=== PATIENT | female | born 1940 | race Caucasian/White ===

== ENCOUNTER 2016-09-26 14:33 | Day surgery (SDC) | payer OTHER ==
[~2016-09-26] VITALS: Ht 160 cm; Wt 69.4 kg
[2016-09-26] MEDS ORDERED: ASPIR 8181 M1 PO (14:52)
[2016-09-26] MEDS ORDERED: NEXIUM20 MG PO (14:52)
[2016-09-26] MEDS ORDERED: LEXAPRO10 MG PO (14:52)
[2016-09-26] MEDS ORDERED: LOSARTAN POTAS100 MG PO (14:53)
[2016-09-26] MEDS ORDERED: CRESTOR5 MG PO (14:53)
[2016-09-26] MEDS ORDERED: SYNTHROID100 MCG PO (14:55)
[2016-09-26] MEDS ORDERED: TOPROL XL25 MG PO (14:56)
[2016-09-26] MEDS ORDERED: HYDROCHLOROTH12.5 M3 PO (14:57)
[2016-09-26] MEDS ORDERED: SINGULAIR10 MG PO (14:58)
[2016-09-26] MEDS ORDERED: VITAMIN D32000 UNI1 PO (14:58)
[2016-09-26] MEDS ORDERED: FISH OIL 1,2001 EAC4 PO (14:59)
[2016-09-26] MEDS ORDERED: VITAMIN B122500 MCG PO (14:59)
[2016-09-26] MEDS ORDERED: ONE DAILY WOME1 EACH PO (15:00)
[2016-09-26] MEDS ORDERED: HYDROCODON-ACE1 EA11 PO (15:01)
[2016-09-26] MEDS ORDERED: CIPROFLOXACIN500 M1 PO (15:01)
[2016-09-26 15:23] LABS: HEMATOCRIT 38.7 % (36.0-46.0); MCH 30.1 PG (29.0-34.0); MCHC 33.9 G/DL (30.0-36.0); MEAN PLAT.VOLUME 9.7 uM^3 (9.5-12.4); PLATELET COUNT 229 K/uL (156-360); RBC DIS.WIDTH-CV 14.2 % (11.8-14.6); RBC DIS.WIDTH-SD 46.5 % (39-53); RED BLOOD COUNT 4.35 M/uL (3.80-5.20); WHITE BLOOD COUNT 7.5 K/uL (4.1-10.2)
[2016-09-26 15:40] LABS: ANION GAP 7 MEQ/L (2-14); CHLORIDE 97 MEQ/L (99-109); POTASSIUM 3.6 MEQ/L (3.7-5.4); PTT 27.1 (25-32); SAMPLE HEMOLYSIS CHECK 0; SAMPLE ICTERIC CHECK 0; SAMPLE LIPEMIA CHECK 0; SODIUM 135 MEQ/L (136-147)
[2016-09-26 15:45] LABS: GFR ESTIMATE (CALCULATED) > 59 mL/min/; GLUCOSE 99 mg/dL (70-99); UREA NITROGEN (BUN) 14 mg/dL (9-23)
[2016-09-26 16:30] LABS: BASE EXCESS 4.9 mEq/L (-3 to +3); BICARBONATE 30.4 mEq/L (22-26); CARBOXY HGB 1.7 % (0-5); METHEMOGLOBIN 1.5 % (0-1.5); PCO2 48 mm Hg (35-45); pH 7.41 (7.35-7.45)
[2016-09-26 16:31] LABS: PO2 38 mm Hg (80-100); SITE PA
[2016-09-26 16:34] LABS: BASE EXCESS 1.9 mEq/L (-3 to +3); BICARBONATE 26.6 mEq/L (22-26); METHEMOGLOBIN 1.4 % (0-1.5); PCO2 41 mm Hg (35-45); PO2 85 mm Hg (80-100); SITE AO; pH 7.42 (7.35-7.45)
== END 2016-09-26 20:30 | disposition home or self-care (01) ==
LOC: CATH 14:33
PROVIDERS: Internal Medicine Cardiovascular Disease
DX: R06.09 Other forms of dyspnea (principal); R94.31 Abnormal electrocardiogram [ECG] [EKG]; I27.2 Other secondary pulmonary hypertension; I10 Essential (primary) hypertension; E78.5 Hyperlipidemia, unspecified; I51.89 Other ill-defined heart diseases; Z88.0 Allergy status to penicillin; Z88.2 Allergy status to sulfonamides
CPT/HCPCS: 36600; 80048; 82803; 85027; 85610; 85730; 93005; C1760; C1769; C1887; C1894; J1644; J2250; J3010; J7050

== ENCOUNTER 2017-06-04 08:47 | Emergency (ER) | payer OTHER ==
[~2017-06-04] VITALS: Ht 160 cm; Wt 66.0 kg
[~2017-06-04 08:47] MED LIST: ASPIR 8181 M1 PO; CIPROFLOXACIN500 M1 PO; CRESTOR5 MG PO; FISH OIL 1,2001 EAC4 PO; HYDROCHLOROTH12.5 M3 PO; HYDROCODON-ACE1 EA11 PO; LEXAPRO10 MG PO; LOSARTAN POTAS100 MG PO; NEXIUM20 MG PO; ONE DAILY WOME1 EACH PO; SINGULAIR10 MG PO; SYNTHROID100 MCG PO; TOPROL XL25 MG PO; VITAMIN B122500 MCG PO; VITAMIN D32000 UNI1 PO
[2017-06-04 09:57] LABS: EOSINOPHIL (%) 0.7 % (0-5); EOSINOPHIL COUNT 0.1 K/uL (0-0.3); HEMATOCRIT 37.6 % (36.0-46.0); IMMATURE GRANULOCYTE (%) 0.4 % (0.0-0.7); INSTRUMENT ABS NEUTROPHIL CT 8.2 K/uL; LYMPHOCYTE COUNT 1.8 K/uL (1.0-2.8); MCH 26.7 PG (29.0-34.0); MCHC 32.4 G/DL (30.0-36.0); MCV 82.3 FL (83-99); MONOCYTE (%) 5.7 % (3-12); MONOCYTE COUNT 0.6 K/uL (0-0.8); NEUTROPHIL (%) 76.1 % (45-76); NEUTROPHIL COUNT 8.2 K/uL (1.8-6.4); PLATELET COUNT 346 K/uL (156-360); RBC DIS.WIDTH-CV 14.5 % (11.8-14.6); RBC DIS.WIDTH-SD 43.3 % (39-53); RED BLOOD COUNT 4.57 M/uL (3.80-5.20); WHITE BLOOD COUNT 10.8 K/uL (4.1-10.2)
[2017-06-04 10:19] LABS: ANION GAP 12 MEQ/L (2-14); CHLORIDE 101 MEQ/L (99-109); POTASSIUM 3.4 MEQ/L (3.7-5.4); SAMPLE HEMOLYSIS CHECK 0; SAMPLE ICTERIC CHECK 0; SAMPLE LIPEMIA CHECK 0; SODIUM 137 MEQ/L (136-147); TOTAL BILIRUBIN 0.7 MG/DL (0.0-1.0)
[2017-06-04 10:25] LABS: ALKALINE PHOSPHATASE 111 IU/L (3-129); GFR ESTIMATE (CALCULATED) > 59 mL/min/; GLUCOSE 109 mg/dL (70-99); LIPASE 15 U/L (1.0-51.0); UREA NITROGEN (BUN) 17 mg/dL (9-23)
[2017-06-04 11:48] LABS: ADD MIUA? NO; BILIRUBIN NEGATIVE; BLOOD NEGATIVE; COLOR STRAW ((YELLOW)); GLUCOSE (STRIP) NEGATIVE; KETONES 5; LEUKOCYTES NEGATIVE; NITRITE NEGATIVE; PROTEIN (STRIP) NEGATIVE; SPECIFIC GRAVITY 1.006 (1.000-1.030); UROBILINOGEN 0.2 MG/DL (0.2-1.0)
[2017-06-04] MEDS ORDERED: FLAGYL500 MG PO (13:54)
[2017-06-04] MEDS ORDERED: PERCOCET 5/31 TABLET PO (13:54)
[2017-06-04] MEDS ORDERED: CIPRO500 MG PO (13:54)
[2017-06-04 15:08] VITALS: BP 163/68
== END 2017-06-04 15:28 | disposition home or self-care (01) ==
LOC: EME 08:47
PROVIDERS: Emergency Medicine
DX: R07.89 Other chest pain (principal); K57.32 Diverticulitis of large intestine without perforation or abscess without bleeding; Z98.890 Other specified postprocedural states; R06.02 Shortness of breath; R05 Cough; Z90.49 Acquired absence of other specified parts of digestive tract; I10 Essential (primary) hypertension; E78.5 Hyperlipidemia, unspecified; Z79.82 Long term (current) use of aspirin; Z88.0 Allergy status to penicillin; Z87.891 Personal history of nicotine dependence
CPT/HCPCS: 71010; 71260; 74177; 80053; 81003; 83690; 85025; 93005; 99281; 99285; J2270; J7030